=== PATIENT | female | born 1965 ===

== ENCOUNTER 2017-11-20 08:27 | Outpatient (CLI) | payer OTHER ==
--- NOTE | 2017-11-25 09:13 | MMO ---
BILATERAL DIGITAL SCREENING MAMMOGRAMS: Date: 11/20/17 HISTORY: 52-year-old female presents for digital screening mammogram. COMPARISON: 05/18/14, 05/04/13. FINDINGS: This patient's mammogram was interpreted with the assistance of computer-aided detection. Scattered areas of fibroglandular density are noted bilaterally. Occasional typically benign calcific ations. Stable bilateral parenchymal density asymmetries. IMPRESSION: BIRADS 2: Benign Finding(s) Continue routine screening. POS: [facility]
== END 2017-11-20 08:28 | disposition home or self-care (01) ==
LOC: SCSMAMMO 08:27
PROVIDERS: ATTEND Family Medicine
DX: Z12.31 Encounter for screening mammogram for malignant neoplasm of breast (principal)
CPT/HCPCS: 77067